=== PATIENT | male | born 1985 | race Two or more races ===

== ENCOUNTER 2019-12-27 22:26 | Emergency (ER) | payer OTHER ==
[~2019-12-27] VITALS: Ht 180.3 cm; Wt 72.6 kg
[2019-12-27] MEDS ORDERED: KETOROLAC TROMETHAMINE 30 MG INJ IM ONE (22:45)
[2019-12-27] MEDS ORDERED: KETOROLAC TROMETHAMINE 30 MG INJ ONE ×2 (22:46→22:55)
--- NOTE | 2019-12-27 23:15 | NUR ---
Ultrasound at bedside.
[2019-12-27] MEDS ORDERED: CEFTRIAXONE 1 G VIAL IM ONE (23:45)
[2019-12-27] MEDS ORDERED: AZITHROMYCIN 250 MG TABLET PO ONE (23:45)
[2019-12-27] MEDS ORDERED: CIPROFLOXACIN HCL 250 MG TABLET PO ONE (23:45)
[2019-12-27] MEDS ORDERED: CIPROFLOXACIN HCL 250 MG TABLET ONE (23:47)
[2019-12-27] MEDS ORDERED: LIDOCAINE HCL 1% 20 ML VIAL ONE (23:48)
[2019-12-27] MEDS ORDERED: CEFTRIAXONE 500 MG VIAL ONE (23:48)
--- NOTE | 2019-12-28 00:06 | NUR ---
Patient discharged to home in stable condition. Written and verbal after care instructions given. Patient verbalizes understanding of instructions. Stressed follow up or return to ER for worsening s/s.
[2019-12-28 00:08] VITALS: BP 143/88
[2019-12-30 02:11] LABS: *GC NAA Negative (Negative); *TRIC.VAG. NAA Negative (Negative)
== END 2019-12-28 00:09 | disposition home or self-care (01) ==
LOC: ER 22:30
DX: N45.3 Epididymo-orchitis (principal); N43.3 Hydrocele, unspecified; Z72.51 High risk heterosexual behavior
CPT/HCPCS: 76870; 87491; 96372 ×2; 99284; J0696; J1885; J3490